=== PATIENT | female | born 1985 | race Caucasian/White ===

== ENCOUNTER 2021-09-11 07:14 | Outpatient (CLI) | payer BC, SELFPAY ==
[2021-09-11 07:42] VITALS: BP 117/69; PULSE 96
--- NOTE | 2021-09-11 09:09 | WPDOBADMIT ---
Obstetrics - Admit Note Admission Note: 35 y/o at 37 weeks here for ECV. MBT O pos. AVSS NST reactive TOCO: no contractions ABD soft, nontender, gravid, breech. Transabdominal ultrasound at bedside by me confirms linus breech presentation with back on maternal left. Adequate AFV. Procedure: Terbutaline 0.25 mg sc x 1 was given. Using ultrasound guidance, we attempted to elevate the breech out of the pelvis and effect a forward (counterclockwise) somersault. This was unsuccessful. We tried a reverse somersault, then tried both directions again. All attempts were unsuccessful. FHR normal throughout. The patient tolerated the procedure well. We continued an NST. She will be discharged home to f/u next week in office.
== END 2021-09-11 09:50 | disposition home or self-care (01) ==
LOC: ANHOBOP 07:24 → ANHOBPP 09-17 06:41
PROVIDERS: Visit Provider Obstetrics & Gynecology
DX: O32.1XX0 Maternal care for breech presentation, not applicable or unspecified (principal)
CPT/HCPCS: 59412; 99199

== ENCOUNTER 2021-09-24 13:41 | Outpatient (CLI) | payer BC, SELFPAY ==
[2021-09-24 14:48] LABS: Hematocrit 38.1 % (37.0-47.0); Hemoglobin 12.6 g/dL (12.0-15.0); Immature Platelet Fraction Pct 5.9 % (0.9-11.2); Mean Corpuscular HGB Conc 33.1 g/dl (32-36); Mean Corpuscular Hemoglobin 32.8 pg (26-34); Mean Corpuscular Volume 99.2 fl (80-100); Mean Platelet Volume 10.8 fl (7.4-10.4); Platelet Count Result 153 k/mm3 (150-375); Red Blood Count 3.84 M/mm3 (4.2-5.4); Red Cell Distribution Width 14.9 % (11.5-14.5); White Blood Count 8.7 K/mm3 (4.5-10.0)
[2021-09-25 10:42] LABS: Rapid Plasma Reagin Non-Reactive (NonReactive)
== END 2021-09-24 13:42 | disposition home or self-care (01) ==
PROVIDERS: Visit Provider Obstetrics & Gynecology
DX: Z01.818 Encounter for other preprocedural examination (principal)
CPT/HCPCS: 36415; 85027; 85055; 86592; 86850; 86900; 86901

== ENCOUNTER 2021-09-25 09:49 | Inpatient (IN) | payer BC, SELFPAY ==
[2021-09-25] VITALS (42 sets, daily range): BP systolic 90–115; BP diastolic 49–71; PULSE 59–95; RESP 11–16; TEMP 36.1–36.8; O2SAT 76–100; BMI 28.3
--- NOTE | 2021-09-25 09:49 | LDADM ---
This patient, Lauryn Hays, was admitted to Labor/Delivery/Recovery 119 on 09/25/21 at 09:49. Plans for labor, pain management and were discussed with patient. Patient/family oriented to hospital policies and general routines including ID bracelet, bed and alarms, visiting hours, pain management, procedures, bathroom and other care routines, personal items, smoking policy, room service/diet and guest tray routines, security routines, and visiting hours. Patient/Family are encouraged to report perceived risks to care and to ask questions if they do not understand what they are told or what they should do. See OBIX for further documentation.
[2021-09-25] MEDS: LACTATED RINGERS 1,000 ML 125 ML IV CONT ×2 (10:32→11:02)
--- NOTE | 2021-09-25 11:22 | P.PNAN_ITS ---
Anes - Initial Pre Proc Eval Date/Time: 09/25/21 11:22 Surgeon: Dawson Trotter MD Pre Op Diagnosis: c/s breech Patient Data Age: 35 Gender: F Height: 1.66 m Weight: 78.5 kg Last Vital Signs Pulse 87 09/25/21 10:30 BP 108/65 09/25/21 10:30 Allergies Allergy/AdvReac Type Severity Reaction Status Date / Time codeine Allergy Unknown Itching Verified 09/11/21 09:14 Patient hx anesthesia problems: none Family hx anesthesia problems: none Results Review: All pre-operative results and documents have been reviewed as part of the pre-operative evaluation. [facility] Family History Family History (Updated 09/11/21 @ 09:19 by Sam Salas RN) Grandparent Diabetes mellitus Cerebrovascular accident Father Diabetes mellitus History of heart artery stent Other Breast cancer Grandparent Stomach cancer Grandparent Brain aneurysm Mother Skin cancer (melanoma) H/O partial thyroidectomy Social History Social History Smoking status: Never smoker Second hand tobacco smoke exposure: No Alcohol intake: current Substance use: never Spiritual care concerns: No Anes - Eval Final PreProcedure Day of Procedure 09/25/21 11:22 Patient weight: overweight Heart: regular rate and rhythm Lungs: clear to auscultation and normal air movement Airway: Mallampati scale class II Neurological: alert and oriented Last oral intake: >/= 8 hours ASA classification: II Emergent: no Anesthetic plan: proceed Anesthesia type and monitoring: regional spinal Results Review: All pre-operative results and documents have been reviewed as part of the pre-operative evaluation. Informed Consent: The patient's anesthetic plan and its attendant risks and benefits were discussed with the patient/family/POA. Questions were solicited and answers provided to the satisfaction of the patient/family/POA.
--- NOTE | 2021-09-25 12:15 | P.HP_ITS ---
H&P: HPI History of Present Illness Date/Time: 09/25/21 12:15 35 y/o at 39 weeks with breech presentation, failed ECV, here for primary . GBS neg. Chief Complaint: Here for c section Review of Systems Review of Systems: All systems reviewed & are unremarkable except as noted in HPI and below PMFSH Surgical History Surgical History History of augmentation mammoplasty Family History Family History Grandparent Diabetes mellitus Cerebrovascular accident Father Diabetes mellitus History of heart artery stent Other Breast cancer Grandparent Stomach cancer Grandparent Brain aneurysm Mother Skin cancer (melanoma) H/O partial thyroidectomy Social History Social History Smoking status: Never smoker Second hand tobacco smoke exposure: No Alcohol intake: current Substance use: never Spiritual care concerns: No Meds Home Medications and Allergies Allergies Allergy/AdvReac Type Severity Reaction Status Date / Time codeine Allergy Unknown Itching Verified 09/11/21 09:14 Vital Signs Vital Signs - 24 hr 09/25/21 10:13 09/25/21 10:15 09/25/21 10:30 Pulse Rate 85 95 87 Blood Pressure 104/64 105/71 108/65 Exam Const: Orientation/consciousness: patient oriented x3 Other: Well-d eveloped, well-nourished female in no acute distress. Neck: Thyroid: thyroid normal Lymphatic: no lymphadenopathy noted (in neck, axilla or inguinal nodes) Resp: Effort & Inspection: normal respiratory effort Auscultation: clear to auscultation bilaterally Cardio: Rate: regular rate Rhythm: regular rhythm Heart sounds: S1 normal heart sound present and S2 normal heart sound present GI: Other: ABD: Soft, nontender, nondistended, gravid. NST reactive. TOCO: no contractions. Bedside ultrasound exam by me confirms persistent breech presentation. : General: Yes no CVA tenderness Other: Cervix closed Back/Spine/Pelvis: Back: no CVA tenderness Skin: General skin exam: normal color and no rashes or lesions noted Neuro: General: patient oriented x3 Extrem: Other: Extremities: nontender with no edema Psych: Mental Status: mental status grossly normal Affect: normal affect Assessment and Plan Assessment and plan (1) Breech presentation: Code(s): O32.1XX0 - Maternal care for breech presentation, not applicable or unspecified Status: Acute (2) Term : Code(s): Z34.90 - Encounter for supervision of normal , unspecified, unspecified trimester Status: Acute Assessment and Plan: A: IUP at 39 weeks with persistent breech presentation. P: Offered primary . She understands risks of surgery to include risks of anesthesia, risks of pain, infection, bleeding, blood products, thromboembolic phenomena and damage to adjacent structures such as bowel, bladder, ureters, blood vessels and nerves. She understands all these risks and elects to proceed with surgery.
--- NOTE | 2021-09-25 12:18 | WPDHPUPDATE1 ---
History and Physical Update Update Date/Time: 09/25/21 12:18 History and Physical has been reviewed, including an updated exam of the patient. There are NO changes in the patient's condition. Risks, benefits, and alternatives have been discussed and questions answered. Patient agrees to proceed with procedure.
--- NOTE | 2021-09-25 13:25 | PM.OBPRVD ---
OB - Delivery Note Procedure Delivery date: 09/25/21 Procedure: Primary low transverse delivery Delivery monitor: external FHT and external uterine Route of delivery: Specimen: Yes (cord blood) Quantitative Blood Loss (ml): 480 Anesthesia type: Spinal Disposition: PACU Complications: None Narrative: The patient was taken to the operating room where she was prepared and draped in the usual sterile fashion in dorsal supine position with a leftward tilt. She received cefazolin preoperatively. Spinal anesthesia was found to be adequate. A Pfannenstiel skin incision was made and carried through to the underlying layer of the fascia. The fascia was incised in the midline and the incision was extended laterally. The fascia was dissected free of the underlying rectus muscles. The rectus muscles were in the midline. The peritoneum was identified, tented up and entered sharply. The peritoneal incision was extended superiorly and inferiorly with good visualization of the bladder. The bladder blade was placed. The vesicouterine peritoneum was identified, tented up and entered sharply. The incision was extended laterally and the bladder flap was developed. The bladder blade was replaced. The uterus was then incised sharply in a transverse fashion along the lower uterine segment. The incision was extended laterally. The 's breech was delivered to the level of the scapulae. The arms were swept across the chest and delivered. The head was gently flexed and easily delivered. The nose and mouth were bulb suctioned. After a delay, the cord was clamped and cut. The was handed off the field. Cord blood was collected. The placenta was removed manually and was passed off the field. The uterus was exteriorized and cleared of all clots and debris. The uterine incision was reapproximated using 0 Monocryl in a running, locked fashion. A second, imbricating layer of the same suture was run. Excellent hemostasis resulted as did excellent reapproximation of the normal anatomy. The uterus was returned the abdomen. The pelvis was irrigated copiously with warmed normal saline. Rigorous hemostasis was assured. The fascial layer was reapproximated using 0 Vicryl in a running fashion. The skin was closed with a running, subcuticular stitch of 4 0 Vicryl. Dermaflex was applied externally. Sponge, lap, needle and instrument counts were correct. The patient was taken to the recovery room in stable condition. The went to the nursery in stable condition. I was present and scrubbed the entire procedure. [place] Baby Date of : 09/25/21 Time of : 12:43 Weeks of gestation at delivery: 39 Infant gender: Male Weight (pounds): 7 Weight (ounces): 7 presentation: breech Placenta delivery description: Manual Removal and Normal Configuration cord vessel description: 3 Vessels and Delayed Cord Clamping score one minute: 8 score five minutes: 9
--- NOTE | 2021-09-25 13:30 | PM.OBDSVD ---
DS: Admitting Diagnosis Discharge Date 09/28/21 Admitting Diagnosis IUP at 39 weeks Breech presentation DS: Discharge Diagnosis Discharge Diagnosis (1) delivery delivered: Code(s): O82 - Encounter for delivery without indication Status: Acute OB - DS: Summary OB Procedures : NST and Ultrasound OB Procedures Intrapartum: OB Procedures: : None Discharge Plan Discharge Attending physician on discharge: Dawson Trotter Discharging Clinician: Dawson Trotter Patient Disposition: Home, Self-Care Activity: may shower, may drive after 2 weeks and pelvic rest Diet: regular Wound Care Instructions: incision open to air Discharge Instructions: Education: Mom and Baby Guide Given to: Mother Follow-Up: Call your delivering provider's office for an appointment to be seen in: 4 Weeks Mom and baby should come to the [facility] for the follow-up appointment. Appointment Date/Time: September 29, 2021 at 11:00 am What to expect at your follow-up visit: Blood Pressure Check Call [phone] if you are unable to keep your appointment time. BREAST CARE: * Wear a snug supportive bra. * For engorgement discomfort: Breast Feeding: * Apply warm moist washcloths * Express milk as needed to relieve engorgement * Wear loose clothing Bottle Feeding: * May apply ice packs * For sore nipples: * Identify correct latch-on * Apply warm moist washcloths before and after nursing * Air dry nipples after nursing * May apply Lansinoh cream to nipples ABDOMINAL INCISION: (if applicable) * Allow incision to air dry * Do NOT use lotions for powders on your incision * When showering, allow soap and water to run over the incision, but do not wash incision PERINEAL CARE: * Until bleeding stops, use your mark bottle after urinating * Change your pad frequently throughout the day * No tub baths until seen by your physician - You may shower ACTIVITY: * Rest as much as possible. * Do not exercise or lift anything heavier than your baby (such as laundry or other children.) * Avoid stairs or driving as much as possible. * Do not put anything into the vagina. No douching, tampons, or sexual activity until seen by physician. NOTIFY PHYSICIAN IF YOU HAVE ANY QUESTIONS OR IF ANY OF THE FOLLOWING SYMPTOMS OCCUR: * If your incision becomes red, swollen, or more painful than what you have experienced in the hospital. * If your vaginal bleeding becomes foul smelling. * If your vaginal bleeding becomes more heavy than a period or if your bleeding changes from pink to bright red. However, you may pass an occasional walnut-sized clot once or twice for the first week . * If you experience a sharp, shooting pain in you calves. * If you discover a hard, reddened area on your breast or if you experience flu-like symptoms. * If you have a fever of 100.4 or greater DIET: * Eat regular, well-balanced meals. * Drink plenty of fluids daily. If , drink to thirst.Call or return if temperature above 100.4? F, increased abdominal pain, increased vaginal bleeding or any new problems. Stand Alone Forms: General Discharge Information Follow-up/Referrals: Dawson Trotter MD [Physician] - 4 Weeks Discharge Medications: New tramadol 50 mg tablet 50 - 100 mg PO Q6H PRN (Reason: pain) Qty: 30 RF: 0 ibuprofen 600 mg tablet 600 mg PO Q6H PRN (Reason: cramps) Qty: 30 RF: 0 Date of admission: 09/25/21 09:49 Primary Care Provider: PHYSICIAN,COFFEE FARMER Admitting Provider: Dawson Trotter Attending physician on admission: Dawson Trotter Condition: Stable
[2021-09-25] MEDS: OXYTOCIN 30 UNITS/NS 500 ML 30 UNITS/500 ML BAG 125 UNITS IV CONT (14:56)
[2021-09-25] MEDS: KETOROLAC 30 MG/ML VIAL (*BKC) IV PUSH ×2 (16:30→22:25)
[2021-09-25] MEDS: DEXTROSE 5%/0.45% SOD CHL 1,000 ML 125 ML IV CONT (19:15)
--- NOTE | 2021-09-25 20:03 | OBPPTRN ---
1541 Patient transferred to post room #286 via stretcher. Support person present. Oriented to unit, room, information board, rooming in, admission packet and security measures. Patient verbalizes understanding.
[2021-09-26 03:25] VITALS: BP 92/56; PULSE 74; RESP 16; TEMP 37; O2SAT 99
[2021-09-26 04:36] LABS: Basophils Percent Auto 0.3 % (0.2-1.2); Eosinophils Absolute Auto 0.1 K/mm3 (0-0.3); Eosinophils Percent Auto 0.6 % (0-4.4); Hematocrit 32.8 % (37.0-47.0); Immature Granulocyte Absolute 0.11 K/mm3 (0.00-0.031); Immature Granulocyte Percent A 1.2 % (0-0.5); Lymphocytes Absolute Auto 1.61 K/mm3 (0.9-3.2); Mean Corpuscular HGB Conc 33.5 g/dl (32-36); Mean Corpuscular Hemoglobin 32.9 pg (26-34); Mean Corpuscular Volume 98.2 fl (80-100); Mean Platelet Volume 10.8 fl (7.4-10.4); Monocytes Absolute Auto 0.5 K/mm3 (0.1-0.6); Monocytes Percent Auto 5.1 % (2.6-8.5); Neutrophils Absolute Auto 6.7 K/mm3 (1.3-6.7); Neutrophils Percent Auto 74.8 % (45.5-73.1); Platelet Count Result 104 k/mm3 (150-375); Red Blood Count 3.34 M/mm3 (4.2-5.4); Red Cell Distribution Width 14.8 % (11.5-14.5)
[2021-09-26] MEDS: KETOROLAC 30 MG/ML VIAL (*BKC) IV PUSH (05:23)
[2021-09-26 08:10] VITALS: BP 95/60; PULSE 80; RESP 16; TEMP 36.9; O2SAT 100
--- NOTE | 2021-09-26 09:04 | P.PNOB_ITS ---
OB - PN: Subj Subjective Date/time seen: 09/26/21 09:04 Narrative: Pain OK. Tolerating diet. Would like circ for son. OB - PN: Obj Data Labs CBC & Chem 7: 09/26/21 03:33 Labs: Laboratory Results - last 24 hr 09/26/21 03:33 WBC 9.0 RBC 3.34 L Hgb 11.0 L Hct 32.8 L MCV 98.2 MCH 32.9 MCHC 33.5 RDW 14.8 H Plt Count 104 L MPV 10.8 H Immature Gran % (Auto) 1.2 H Neut % (Auto) 74.8 H Lymph % (Auto) 18.0 L [place] % (Auto) 5.1 Eos % (Auto) 0.6 Baso % (Auto) 0.3 Lymph # (Auto) 1.61 [place] # (Auto) 0.5 Eos # (Auto) 0.1 Baso # (Auto) 0.0 Abs Immat Gran (auto) 0.11 H Absolute Neuts (auto) 6.7 Absolute Nucleated RBC 0.0 Nucleated RBC % 0.0 OB - PN A/P Plan Comments: A: POD#1, doing well. P: Routine care. Reviewed circ. Exam Narrative: AVSS I/O OK ABD soft, nontender, fundus firm. Incision c/d/i. EXT nontender
[2021-09-26] MEDS: ACETAMINOPHEN 325 MG TABLET 650 MG PO (09:32)
[2021-09-26] MEDS: MULTIVIT/MIN/PREN/FOL AC/IRON TABLET 1 TAB PO (09:35)
[2021-09-26] MEDS: DOCUSATE SODIUM 100 MG CAPSULE PO ×2 (09:35→16:19)
[2021-09-26] MEDS: WITCH HAZEL 40 PADS 1 PAD (10:03)
[2021-09-26] MEDS: DIBUCAINE 1% OINTMENT 30 GM TUBE 1 APPLIC (10:03)
[2021-09-26] MEDS: SIMETHICONE 80 MG TAB.CHEW PO ×3 (10:03→20:30)
--- NOTE | 2021-09-26 10:05 | WPDANLDPN2 ---
Anes-Prog Note L&D Date/Time: 09/26/21 10:05 Comfortable throughout: section Neuraxial method: spinal Epidural/Spinal procedure site: clean & non-tender Neuro status: Neuro function grossly intact. Cardiovascular status: normal Respiratory status: normal Airway patency: baseline Mental status: baseline Post-Op hydration status: normal Vital Signs: Last Vital Signs Temp 37.0 C 09/26/21 03:25 Pulse 74 09/26/21 03:25 Resp 16 09/26/21 03:25 BP 92/56 L 09/26/21 03:25 Pulse Ox 99 09/26/21 03:25 Pain score (VAS): 09/10 I/O: Intake & Output 09/25/21 09/26/21 09/26/21 23:59 07:59 15:59 Intake Total 500 1000 Output Total 750 1050 Balance -250 -50 Post-procedural complaints: none Patient feedback: Patient satisfied with anesthetic care.
--- NOTE | 2021-09-26 10:05 | WPDANLDNPN2 ---
Anes-Prog Note L&D-Neuraxial Date/Time: 09/26/21 10:05 Neuraxial medications: intrathecal PF morphine Opiod-related complaints: none Patient feedback: Patient satisfied with post-operative pain management.
--- NOTE | 2021-09-26 10:58 | PC.NURSE ---
0900 - Introductions were made and mother led the discussion of her experience of feeding her babies. Mother has breast augmentation and states she breastfed her other two children for 7 months with a good milk production and naturally weaned. Mother uses handwashing to prevent infection before and after taking care of her baby. Mother verbalizes she is able to independently latch infant. Discussed how to watch for early feeding cues, place infant skin to skin, then feeding baby when infant is ready or every 2-3 hours. She denies any nipple discomfort. Reviewed effective latching with resources mom and baby guide. Use of warm, wet compress to nipples and air dry for improved comfort. Mother is feeding as needed to meet requirements. Mother has verbalized understanding watching for feeding cues for responsive feeding or how to stimulate to initiate from the start of the last feeding. Mother voiced understanding to feed infant when she sees feeding cues, 8-12 times in 24 hours approximately every 2-3 hours from the start of the last feeding or she has discomfort with nursing. Reported to primary RN.
[2021-09-26 12:30] VITALS: BP 99/65; PULSE 88; RESP 16; TEMP 36.7; O2SAT 100
[2021-09-26] MEDS: IBUPROFEN 600 MG TABLET PO ×2 (12:37→19:00)
[2021-09-26] MEDS: HYDROcodone/acetaminophen (*CRX) 5-325 MG TABLET 1 TAB PO ×2 (16:18→20:30)
[2021-09-26 20:30] VITALS: BP 103/65; PULSE 85; RESP 16; TEMP 36.8; O2SAT 100
[2021-09-27] MEDS: IBUPROFEN 600 MG TABLET PO ×4 (01:03→21:17)
[2021-09-27] MEDS: ACETAMINOPHEN 325 MG TABLET 650 MG PO ×3 (04:25→21:18)
--- NOTE | 2021-09-27 07:00 | PC.NURSE ---
PT introductions made and plan of care discussed per post op c section, pain management, breast feeding, daily care activities. PT sole recipient of such instructions. PT received instructions this shift per one to one discussion, mom baby care guide and demonstrations. NO barriers to learning identified at this time. PT verbalized understanding of such care.
[2021-09-27 08:25] VITALS: BP 100/59; PULSE 82; RESP 18; TEMP 36.9; O2SAT 100
[2021-09-27] MEDS: LANOLIN (LANSINOH) 7.5 GM CREAM 1 APPLIC TOPICAL (08:39)
[2021-09-27] MEDS: SIMETHICONE 80 MG TAB.CHEW PO ×4 (08:39→17:41)
[2021-09-27 08:40] VITALS: PULSE 85; RESP 16; O2SAT 100
[2021-09-27] MEDS: MULTIVIT/MIN/PREN/FOL AC/IRON TABLET 1 TAB PO (08:40)
[2021-09-27] MEDS: DOCUSATE SODIUM 100 MG CAPSULE PO ×2 (08:40→17:40)
--- NOTE | 2021-09-27 09:08 | PM.OBPNVD ---
OB - PN: Subj Subjective Date/time seen: 09/27/21 09:08 Narrative: Pain OK. Tolerating diet. Would like Tramadol for pain. She has used it in the past and has done well. OB - PN: Obj Data Labs CBC & Chem 7: 09/26/21 03:33 OB - PN A/P Plan Comments: A: POD#2, doing well. P: Routine care. Exam Narrative: AVSS I/O OK ABD soft, nontender, fundus firm. Incision c/d/i. EXT nontender
[2021-09-27] MEDS: traMADol HCL (*CRX) 50 MG TABLET PO ×2 (11:22→18:55)
[2021-09-27] MEDS: TETANUS,DIPHTHERIA,AC PERTUSSIS ADULT (0.5 ML) BOOSTRIX IM (15:27)
[2021-09-27 19:15] VITALS: BP 117/69; PULSE 83; RESP 18; TEMP 36.6
[2021-09-28] MEDS: traMADol HCL (*CRX) 50 MG TABLET PO (01:04)
[2021-09-28] MEDS: IBUPROFEN 600 MG TABLET PO ×2 (05:37→11:54)
[2021-09-28] MEDS: ACETAMINOPHEN 325 MG TABLET 650 MG PO ×2 (05:37→11:55)
--- NOTE | 2021-09-28 07:00 | PC.NURSE ---
PT introductions made and plan of care discussed per post op c section, pain management, breast feeding, daily care activities and pending discharge to home. PT sole recipient of such instructions. PT received instructions this shift per one to one discussion, mom baby care guide and demonstrations. NO barriers to learning identified at this time. PT verbalized understanding of such care.
[2021-09-28 08:25] VITALS: BP 110/70; PULSE 76; RESP 18; TEMP 36.4; O2SAT 99
--- NOTE | 2021-09-28 08:40 | PM.OBPNVD ---
OB - PN: Subj Subjective Date/time seen: 09/28/21 08:40 Narrative: Pain OK. Tolerating diet. Would like to go home. OB - PN: Obj Data Labs CBC & Chem 7: 09/26/21 03:33 OB - PN A/P Plan Comments: A: POD#3, doing well. P: Home to f/u 4 weeks. Exam Narrative: AVSS ABD soft, nontender, fundus firm. Incision c/d/i. EXT nontender
[2021-09-28] MEDS: SIMETHICONE 80 MG TAB.CHEW PO ×2 (08:53→11:56)
[2021-09-28] MEDS: MULTIVIT/MIN/PREN/FOL AC/IRON TABLET 1 TAB PO (08:53)
[2021-09-28] MEDS: DOCUSATE SODIUM 100 MG CAPSULE PO (08:53)
[2021-09-28 09:00] VITALS: PULSE 76; RESP 18; O2SAT 99
--- NOTE | 2021-09-28 11:29 | PC.NURSE ---
0855 - Primary RN confirms today mother's milk is in. As discovered yesterday with assessment, mom continues to breastfeed independently without pain. Mother voiced understanding when to call for assistance.
--- NOTE | 2021-09-28 13:00 | PC.NURSE ---
Pt received discharge instructions per protocol and verbalized understanding of such care.
[2021-09-29 11:00] VITALS: BP 109/71; PULSE 82; RESP 20; TEMP 37.1; O2SAT 100
== END 2021-09-28 13:30 | disposition home or self-care (01) | DRG 788 ==
LOC: ANHLDR 13:32 → ANHOB2 15:53
PROVIDERS: Admitting Provider Obstetrics & Gynecology; Visit Provider Obstetrics & Gynecology
PROC: 10D00Z1 Extraction of Products of Conception, Low, Open Approach (ICD-10-PCS; CPT 59514; principal; 2021-09-25 12:00)
DX: O32.1XX0 Maternal care for breech presentation, not applicable or unspecified (principal); Z3A.39 39 weeks gestation of pregnancy; Z37.0 Single live birth
CPT/HCPCS: 36415; 85025; 90715; A9270; J0131; J1885; J2274; J2370; J2405; J2590; J7120

== ENCOUNTER 2024-03-24 00:07 | Day surgery (SDC) | payer BC, SELFPAY ==
[2024-03-22 12:43] VITALS: BMI 22.9
--- NOTE | 2024-03-22 12:50 | PC.NURSE ---
Report to the Outpatient Waiting Room, entrance under the green pavilion located off [facility], at time _1000_ on date _[id number]_. Planned Procedure Time: _1200_. Time changes happen often and if your time is changed the preop area will call you the afternoon before. - You and your visitor will be asked to self-screen and do not enter if you have any COVID symptoms. - A mask is optional within the hospital at this time. Patients may have clear liquids (water, carbonated beverages, clear teas, apple juice) until 3 hours prior to surgery with a maximum of 20 ounces. - No food from midnight until time of surgery Take the following medications with a SIP of water the morning of surgery: ____Flonase if needed. DO NOT STOP ANY OF YOUR OTHER PRESCRIPTION MEDICATIONS PRIOR TO SURGERY ?EXCEPT THE FOLLOWING Medications to discontinue per physician None Date to take last dose Please no make-up, nail danish, hairspray, perfume, deodorant, or body powder the day of surgery. No jewelry (including any body piercings) or valuables the day of surgery, leave them at home. Please take a shower or bath the night before, or the morning of, surgery with an antibacterial soap. Wear comfortable, loose fitting clothing. - Jewelry must be removed prior to entering the operating room. Rings and piercings that are not removed may be cut off. - The hospital will not accept responsibility for valuables. - Please leave all valuables, including medications, at home the day of surgery. If you are going home after surgery, a licensed route driver must drive you home. - NO public transportation without another adult if you receive anesthesia. - We recommend that an adult stay with you for 24 hours following discharge. - We also recommend that you do not drive, make important decision, drink alcoholic beverages, or take any drugs that were not prescribed by your health care provider for at least 24 hours after your discharge time. Follow any additional instructions given to you from your surgeon. If you or anyone in your household have experienced Covid symptoms in the past week, please notify your surgeon or the nurse liaison at the phone number below for possible testing. Telephone instructions given to __Lauryn___and asked if any additional questions and then verbalized understanding. Patient advised to call surgeon office or pre surgery nurse liaison [phone] if any additional questions.
[2024-03-24] MEDS: ACETAMINOPHEN 500 MG TABLET 1000 MG PO (10:35)
[2024-03-24 10:40] VITALS: BP 115/66; PULSE 78; RESP 16; TEMP 36.6; O2SAT 100
[2024-03-24] MEDS: LACTATED RINGERS 1,000 ML 30 ML IV CONT ×2 (10:40→12:32)
--- NOTE | 2024-03-24 11:36 | PM.IMHP ---
H&P: HPI History of Present Illness Date/Time: 03/24/24 11:36 Chief Complaint: Heavy periods Narrative: 38 y/o with heavy menses lasting 8-9 days each. She has no intermenstrual bleeding. Her has had a vasectomy. Review of Systems Review of Systems: All systems reviewed & are unremarkable except as noted in HPI and below PMFSH Surgical History Surgical History History of augmentation mammoplasty History of delivery Family History Family History Grandparent Diabetes mellitus Cerebrovascular accident Father Diabetes mellitus History of heart artery stent Other Breast cancer Grandparent Stomach cancer Grandparent Brain aneurysm Mother Skin cancer (melanoma) H/O partial thyroidectomy Social History Social History Smoking status: Never smoker Second hand tobacco smoke exposure: No Alcohol intake: current Substance use: never Living arrangements: with family Spiritual care concerns: No Meds Home Medications and Allergies Home Medications Medication Instructions Recorded Confirmed Type fluticasone propionate 50 1 spray intranasal DAILY PRN 03/22/24 03/24/24 History mcg/actuation nasal Allergy Symptoms spray,suspension (Flonase Allergy Relief) Allergies Allergy/AdvReac Type Severity Reaction Status Date / Time codeine Allergy Unknown Itching Verified 03/24/24 10:38 Vital Signs Vital Signs - 24 hr 03/24/24 10:40 Temperature 36.6 C Pulse Rate 78 Respiratory Rate 16 Blood Pressure 115/66 Pulse Oximetry 100 Oxygen Delivery Room Air Exam Const: Orientation/consciousness: patient oriented x3 Other: Well-developed, well-nourished female in no acute distress. Neck: Thyroid: thyroid normal Lymphatic: no lymphadenopathy noted (in neck, axilla or inguinal nodes) Resp: Effort & Inspection: normal respiratory effort Auscultation: clear to auscultation bilaterally Cardio: Rate: regular rate Rhythm: regular rhythm Heart sounds: S1 normal heart sound present and S2 normal heart sound present GI: Other: ABD: Soft, nontender, nondistended. No guarding or rebound tenderness. No hepatosplenomegaly. : General: Yes no CVA tenderness Other: External genitalia: normal female hair distribution, without lesion. Urethral meatus: no lesion, non prolapsed. Bladder: no mass, nontender Vagina: well-estrogenized, without lesion or discharge. No cystocele or rectocele. Cervix: no lesion or discharge. Uterus: small, anteverted, freely mobile, nontender Adnexa: no mass or tenderness. Anus/perineum: no lesions, nontender Back/Spine/Pelvis: Back: no CVA tenderness Skin: General skin exam: normal color and no rashes or lesions noted Neuro: General: patient oriented x3 Extrem: Other: Extremities: nontender with no edema Psych: Mental Status: mental status grossly normal Affect: normal affect Assessment and Plan Assessment and plan (1) Menometrorrhagia: Code(s): N92.1 - Excessive and frequent menstruation with irregular cycle Status: Acute Assessment and Plan: A: Menometrorrhagia. P: We have reviewed medical as well a surgical treatment options, and she prefers the latter. Specifically, I have offered her a hysteroscopy with dilation and sharp curettage, and endometrial ablation. She understands risks of surgery to include risks of anesthesia, risks of pain, infection, bleeding, blood products, thromboembolic phenomena and damage to adjacent structures such as bowel, bladder, ureters, blood vessels and nerves. She understands endometrial ablation is not adequate for contraception. She understands all these risks and elects to proceed with surgery.
--- NOTE | 2024-03-24 11:42 | WPDANESEPPF ---
Anes - Initial Pre Proc Eval Procedure: Operation Date: 03/24/24 12:00 Proposed Procedures p Hysteroscopy Dilation and Curettage with Citlali Endometrial Ablation - Dawson Trotter MD Date/Time: 03/24/24 11:42 Surgeon: Dawson Trotter MD Pre Op Diagnosis: dysmenorrhea, heavy bleeding Patient Data Age: 38 Gender: F Height: 1.66 m Weight: 63.85 kg Last Vital Signs Temp 36.6 C 03/24/24 10:40 Pulse 78 03/24/24 10:40 Resp 16 03/24/24 10:40 BP 115/66 03/24/24 10:40 Pulse Ox 100 03/24/24 10:40 O2 Del Method Room Air 03/24/24 10:40 Allergies Allergy/AdvReac Type Severity Reaction Status Date / Time codeine Allergy Unknown Itching Verified 03/24/24 10:38 Home Medications Medication Instructions Recorded Confirmed Type fluticasone propionate 50 1 spray intranasal DAILY PRN 03/22/24 03/24/24 History mcg/actuation nasal Allergy Symptoms spray,suspension (Flonase Allergy Relief) Patient hx anesthesia problems: none Family hx anesthesia problems: none Results Review: All pre-operative results and documents have been reviewed as part of the pre-operative evaluation. [facility] Surgical History Surgical History History of augmentation mammoplasty History of delivery Family History Family History Grandparent Diabetes mellitus Cerebrovascular accident Father Diabetes mellitus History of heart artery stent Other Breast cancer Grandparent Stomach cancer Grandparent Brain aneurysm Mother Skin cancer (melanoma) H/O partial thyroidectomy Social History Social History Smoking status: Never smoker Second hand tobacco smoke exposure: No Alcohol intake: current Substance use: never Living arrangements: with family Spiritual care concerns: No Anes - Eval Final PreProcedure Day of Procedure 03/24/24 11:42 Patient weight: normal Heart: regular rate and rhythm Lungs: clear to auscultation Airway: Mallampati scale class II Neurological: alert and oriented Last oral intake: >/= 8 hours ASA classification: I Emergent: no Anesthetic plan: proceed Anesthesia type and monitoring: general GIVS and standard monitoring Results Review: All pre-operative results and documents have been reviewed as part of the pre-operative evaluation. Informed Consent: The patient's anesthetic plan and its attendant risks and benefits were discussed with the patient/family/POA. Questions were solicited and answers provided to the satisfaction of the patient/family/POA.
--- NOTE | 2024-03-24 11:56 | WPDHPUPDATE1 ---
History and Physical Update Update Date/Time: 03/24/24 11:56 History and Physical has been reviewed, including an updated exam of the patient. There are NO changes in the patient's condition. Risks, benefits, and alternatives have been discussed and questions answered. Patient agrees to proceed with procedure.
[2024-03-24] MEDS: KETOROLAC 15 MG/ML VIAL (*BKC) IV PUSH (12:05)
[2024-03-24] MEDS: LIDOCAINE HCL 1% LOCAL INJ 20 ML VIAL 10 ML INFILTRATE (12:18)
[2024-03-24 12:32] VITALS: BP 101/62; PULSE 71; RESP 12; O2SAT 96
--- NOTE | 2024-03-24 12:35 | W.PM.PROC2 ---
Procedure Note - Detailed Date of Procedure 03/24/24 Pre-op Diagnosis Menometrorrhagia Post-op Diagnosis Same Procedure Performed Hysteroscopy Dilation and sharp curettage Endometrial ablation Surgeon Dawson Trotter MD Anesthesia MAC and Local (1% lidocaine) Findings Normal-appearing endometrial cavity. Both tubal ostia seen. The uterus sounded to a depth of 8 cm with a cervical length of 3 cm, giving a subtracted uterine cavity depth of 5 cm. Description of Procedure The patient was taken to the operating room where she was prepared and draped in the usual sterile fashion in the dorsal lithotomy position. The bladder was drained with a red rubber catheter. A sterile speculum was placed into the vagina. The anterior lip of the cervix was grasped with single-tooth tenaculum. Ten mL of 1% lidocaine was administered in a paracervical block. The cervix was then gently dilated using Hegar dilators until a 7 mm dilator could be passed. Hysteroscopy was performed using sterile saline as a distention medium. Findings are as noted above. Sharp curettage was then performed, and endometrial curettings were collected on a Telfa pad and passed off to be sent to pathology. Finally, the the Citlali device was advanced and endometrial ablation commenced without difficulty. The device was withdrawn and a second look was taken using the hysteroscope. Excellent coverage of the endometrial cavity was noted. The tenaculum was removed. Hemostasis was excellent. Sponge, lap, needle and instrument counts were correct. The patient was awakened and taken to the recovery room in stable condition. I was present and scrubbed through the entire procedure. Implants None Estimated Blood Loss 5 Drains No Packing No Pathology Yes (Endometrial curettings) Complications None Condition Stable Disposition PACU
[2024-03-24 13:00] VITALS: BP 96/62; PULSE 61; RESP 20
[2024-03-24 13:20] VITALS: BP 98/67; PULSE 58; RESP 20
[2024-03-24 16:03] LABS: BEDSIDEPREGUCG Negative
== END 2024-03-24 13:29 | disposition home or self-care (01) ==
PROVIDERS: Visit Provider Obstetrics & Gynecology
PROC: 0U5B8ZZ Destruction of Endometrium, Via Natural or Artificial Opening Endoscopic (ICD-10-PCS; CPT 58563; principal; 2024-03-24 12:00)
DX: N92.1 Excessive and frequent menstruation with irregular cycle (principal); Z98.890 Other specified postprocedural states; Z80.3 Family history of malignant neoplasm of breast; Z80.0 Family history of malignant neoplasm of digestive organs; Z84.0 Family history of diseases of the skin and subcutaneous tissue; Z82.49 Family history of ischemic heart disease and other diseases of the circulatory system
CPT/HCPCS: 58563; 88305; A9270; J1100; J1885; J2250; J2405; J2704; J3010; J7120

== ENCOUNTER 2025-07-11 10:40 | Outpatient (CLI) | payer OTHER, SELFPAY ==
--- OUTSIDE RECORDS SUMMARY | 2025-07-11 11:25 | XMS_ITS | Clinical Summary ---
Author Organization [facility] [email or web address] Address [address] [place] [address] Care Team Providers Care Knitting Supervisor Name Role Phone Sajan Mcclure Primary Care Provider [phone] Source Comments [facility] [email or web address],non-owned Affiliates and Associated Physician Practices is amultiple site organization consisting of ambulatory clinics and hospital sitesin [place], [place], [place] and [place]. This disclosure is being madepursuant to the Care Everywhere program and may not contain all information available regarding this patient. Last updated 18.[facility] [email or web address] Allergies Active Allergy Reactions Criticality Noted Date Comments Codeine Itching 09/16/2018 Medications * Be aware that medications may not be up to date on this document. Alwaysverify current medications with the patient. Montelukast Sodium (SINGULAIR PO) Activ e spironolactone (ALDACTONE) 25 MG tablet Take 25 mg by mouth once daily Active fexofenadine (CHARBEL) 180 MG tablet Take 1 tablet by mouth once daily 30 tablet 6 9 Active fluticasone propionate (FLONASE) 50 MCG/ACT nasal spray Leivasy 1 spray into each nostril 2 times daily 1 bottles 6 9 Active predniSONE (DELTASONE) 10 MG tablet Take 3 tablets by mouth once daily 21 tablet 9 Active olopatadine (PATANASE) 0.6 % nasal solution Leivasy 2 sprays into each nostril 2 times daily 1 bottles 6 9 Active fluticasone-nelsy meterol hfa (ADVAIR HFA) 115-21 MCG/ACT Inhale 2 puffs by mouth 2 times daily 1 Inhaler 5 0 Active albuterol HFA (PROVENTIL;VENT DEANNE;PROAIR) 108 (90 Base) MCG/ACT inhaler Inhale 2 (two) puffs by mouth every 6 hours as needed for Shortness of Breath, Wheezing or Cough 1 Inhaler 6 1 Active EPINEPHrine (EPIPEN) 0.3 MG/0.3ML auto-injector pen Inject 0.3 mL into muscle once as needed for Anaphylaxis 4 Each 1 Active Active Problems Problem Noted Date Diagnosed Date Allergic rhinitis 12/18/2018 Allergic conjunctivitis of both eyes 12/18/2018 Mild persistent asthma without complication 09/02 Resolved Problems Problem Noted Date Diagnosed Date Resolved Date Cough 12/18/2018 01/15/2019 Allergic rhinitis due to pollen 09/27/2018 05/27/2019 Social History Tobacco Use Types Packs/Day Years Used Date Smoking Tobacco: Never Smokeless Tobacco: Never Alcohol Use Standard Drinks/Week Comments Yes 0.8 (1 standard drink = 0.6 oz p ure alcohol) Comments No Sex and Gender Information Value Date Recorded Sex Assigned at Not on file 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 Gender Identity Not on file Sexual Orientation Not on file Last Filed Vital Signs Vital Sign Reading Time Taken Comments Blood Pressure 102/64 12/18/2018 9:51 AM CDT Pulse 98 12/18/2018 9:51 AM CDT Temperature 37.1 C (98.7 F) 01/14/2020 9:30 AM CDT Respiratory Rate 20 12/18/2018 9:51 AM CDT Oxygen Saturation 98% 09/16/2018 2:35 PM MEDICAL DOCTOR Inhaled Oxygen Concentration - - Weight 62.6 kg (138 lb) 12/18/2018 9:51 AM CDT Height 165.1 cm (5' 5) 12/18/2018 9:51 AM CDT Body Mass Index 22.96 12/18/2018 9:51 AM CDT Plan of Treatment Health Maintenance Due Date Last Done Comments HIV SCREENING 2000 HEPATITIS C SCREENING 10/07/2003 DTAP/TDAP/TD VACCINES (1 - Tdap) 2004 HEPATITIS B VACCINE (1 of 3 - 19+ 3-dose series) 2004 PNEUMOCOCCAL VACCINE (1 of 2 - PCV) 2004 PAP SMEAR 2006 HPV VACCINE (1 - 3-dose SCDM series) 2012 DEPRESSION SCREENING 09/01/2024 COVID-19 VACCINE (1 - season) 2025 INFLUENZA VACCINE (#1) 2025 9, 06/28/2018, 07/06/2016, Additional history exists ZOSTER VACCINE (1 of 2) 2035 HIB VACCINE Aged Out No longer eligi ble based on patient's age to complete this topic MENINGOCOCCAL (Group B) VACCINE SHARED DECISION-MAKING Aged Out No longer eligible based on patient's age to complete this topic MENINGOCOCCAL GROUPS A/C/Y/W VACCINE Aged Out No longer eligible based on patient's age to complete this topic Insurance [facility] Address: [facility] [address] [place] [address] * Guarantor: JUSTEN HAYS Account Type Relation to Patient Date of Phone Billing Address Personal/Family [address] [place] [phone] SELF PAY NO INSURANCE Member Subscriber Plan / Payer (Ef fective for All Dates) Name:Jsuten Hays Member ID:Not on file Relation to Subscriber:Not on file Name:JUSTEN HAYS Subscriber ID:Not on file Address: [address] [place] [phone] Payer ID:Not on file Group ID:Not on file Type:Self Pay Address: [place], [place] * Guarantor: JUSTEN HAYS Account Type Relation to Patient Date of Phone Billing Address Personal/Family [address] [place] [phone] SELF PAY NO INSURANCE Member Subscriber Plan / Payer (Ef fective for All Dates) Name:Justen Hays Member ID:Not on file Relation to Subscriber:Not on file Name:JUSTEN HAYS Subscriber ID:Not on file Address: [address] [facility] [address] Payer ID:Not on file Group ID:Not on file Type:Self Pay Address: [place], [place] * Guarantor: JUSTEN HAYS Relation to Patient Date of Phone Billing Address Personal/Family [address] [place] [phone] SELF PAY NO INSURANCE Member Subscriber Plan / Payer (Ef fective for All Dates) Name:LisJusten Member ID:Not on file Relation to Subscriber:Not on file Name:YOHANA HAYSLI Subscriber ID:Not on file Address: [address] [place] [phone] Payer ID:Not on file Group ID:Not on file Type:Self Pay Address: [place], [place] Care Teams Knitting Supervisor Relationship Specialty Start Date End Date Sajan Mcclure DO PCP - General 09/29/19
--- OUTSIDE RECORDS SUMMARY | 2025-07-11 11:25 | XMS_ITS | Encounter Summary ---
Author Organization [facility] Address [address] [place], [place] [id number] Care Team Providers Care Manager Java Name Role Phone Unavailable Primary Care Provider Unavailabl e Encounter Details Date Type Department Care Team (Late st Contact Info) Description 04/08/[address] 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
--- OUTSIDE RECORDS SUMMARY | 2025-07-11 11:25 | XMS_ITS | Clinical Summary ---
Author Organization [facility] Address [address] [place] [address] Care Team Providers Care Junior Estimator Name Role Phone KeyonGala reyes Karishma ASSOCIATE PROFESSOR OF GEOGRAPHY Primary Care Provider Allergies Active Allergy Reactions Criticality Noted Date Comments Codeine Itching Low 08/10/2014 Medications FLUoxetine (PROzac) 10 mg tablet/capsuleIn dications:Premen strual Dysphoric Disorder Take 1 tablet/capsule (10 mg total) by mouth daily Take for 1 week leading up to menstrual cycle 90 capsule 3 5 01/29/20 26 Active fluticasone furoate (ARNUITY) 100 mcg/actuation inhalerIndicatio ns:Intermittent asthma without complication, unspecified asthma severity Inhale 1 puff daily Rinse mouth with water after use. Do not swallow. 30 each 3 5 Active albuterol HFA (ProAir HFA) 90 mcg/actuation inhalerIndicatio ns:Intermittent asthma without complication, unspecified asthma severity Inhale 2 puffs every 4 (four) hours as needed for wheezing or shortness of breath 3 each 4 5 01/29/20 26 Active Active Problems Problem Noted Date Diagnosed Date Premenstrual dysphoric syndrome 01/28/2025 Allergic rhinitis 01/03/2025 Overview (01/28/2025): Was seeing cooling room attendant Got allergy shots, which was helpful at the time Generalized anxiety disorder 01/03/2025 Chronic sinusitis 10/06/2020 Assessment & Plan (10/06/2020 9:43 AM ENVELOPE SEALING MACHINE OPERATOR): -symptoms well controlled with weekly allergy shots, continue Vitamin D deficiency 10/06/2020 Assessment & Plan (10/06/2020 9:43 AM ENVELOPE SEALING MACHINE OPERATOR): -energy level is good, continue vitamin d 5000 international units daily Lipoma of left lower extremity 10/06/2020 Overview (01/28/2025): Saw job service consultant, unchanged in two years Assessment & Plan (10/06/2020 9:44 AM ENVELOPE SEALING MACHINE OPERATOR): -suspected lipoma to left thigh, advised continued monitoring at this time - she will notify me if becomes uncomfortable or is enlarging Asthma Overview (01/28/2025): as a child, occasional symptoms Resolved Problems Problem Noted Date Diagnosed Date Resolved Date Ganglion cyst of finger 10/06/2020 05/3 Assessment & Plan (10/06/2020 9:43 AM ENVELOPE SEALING MACHINE OPERATOR): -referral to ortho hand for further evaluation and possible removal of cyst Encounters Date Type Department Care Team Description 06/19/2025 3:59 AM CDT - 06/19/2025 6:02 AM CDT Emergency [facility] Emergency Department [address] [place] [address] Meredith Osman MD test negative (Primary Dx) Discharge Disposition: Discharge to home or self care from Last 3 Months Immunizations Immunization Administration Dates Next Due Anthrax 11/04/2016,08/19/2016 DTP 11/06/1990, 7,05/27/1986,02/25,1985 Hep A, Adult 08/01/2001,08/01/2000 Hep B Vaccine 08/01/2001,08/01/2000,08/01/1999 Hep B, Adolescent or Pediatric 10/16/2001,2000,02/06/2001 IPV 10/24/2014 Influenza, Quadrivalent, Spl it, Intramuscular 07/08/2020 Influenza, Quadrivalent, Spl it, Preservative Free, Intramuscular 05/18/2023,07/31/2019,06/28/2018 Influenza, Trivalent, IM (MDV) 07/06/2021 Influenza, Trivalent, Preser vative Free, Intramuscular 06/19/2022,07/06/2016,08/06/2015,05/29,07/04/2013 Influenza, Unspecified 07/03/2020 MMR 11/06/1990,01/27/1987 OPV 11/06/1990, 7,02/25/1986,12/14 Td, adsorbed 06/19/2022,01/15/2000 Tdap 09/27/2021,01/18/2019,12/31/2007 Typhoid Inactivated 08/19/2016 Varicella 08/19/2016,07/06/2016 Surgical History Surgery Date Site/Laterality Comments WISDOM TOOTH EXTRACTION 09/01/2004 - 08/31/2005 HAND SURGERY 09/01/2018 - 08/31/2019 BREAST SURGERY 09/01/2008 - 08/31/2009 augmentation ABLATION uterine COSMETIC SURGERY Breast apr 2009 TUBAL LIGATION Uterine ablation 2023 SECTION 2021 Medical History Medical History Date Comments Vitamin D deficiency Allergic Sinusitis Asthma as a child Ganglion cyst of finger 10/06/2020 Menstrual problem 2015 Family History Medical History Relation Name Comments Diabetes Father Heart disease Father Hyperlipidemia Father Hypertension Father Cancer Mother Reba Hyperlipidemia Mother Reba Alzheimer's disease Paternal Grandmother Bryanna Diabetes Paternal Grandmother Bryanna Parkinsonism Paternal Grandmother Bryanna Stroke Paternal Grandmother Bryanna Relation Name Status Comments Father Mother Reba Paternal Grandmother Bryanna Social History Tobacco Use Types Packs/Day Years Used Date Smoking Tobacco: Never Smokeless Tobacco: Never Humiliation, Afraid, Rape, and Kick questionnair e Answer Date Recorded Within the last year, have y ou been afraid of your partner or ex-partner? No 01/28/2025 Within the last year, have y ou been humiliated or emotionally abused in other ways by your partner or ex-partner? No Within the last year, have y ou been kicked, hit, slapped, or otherwise physically hurt by your partner or ex-partner? No 01/28/2025 Within the last year, have y ou been raped or forced to have any kind of sexual activity by your partner or ex-partner? No 01/28/2025 AUDIT-C Answer Date Recorded Q1: How often do you have a drink containing alc ohol? 2-4 times a month 01/28/2025 Q2: How many drinks containi ng alcohol do you have on a typical day when you are drinking? 1 or 2 01/28/2025 Q3: How often do you have si x or more drinks on one occasion? Never 01/28/2025 PHQ-2 Answer Date Recorded PHQ-2 Total Score (If total score is 3 or more points, staff should administer the PHQ-9) 0 01/28/2025 PHQ-9 Answer Date Recorded PHQ-9 Total Score 0 01/28/2025 Personal Safety Answer Date Recorded Have you ever been in or are you currently in a harmful physical or emotional relationship or is someone making you feel afraid or unsafe? Denies 06/19/2025 Comments No Sex and Gender Information Value Date Recorded Sex Assigned at Not on file Legal Sex Female 8:53 AM ENVELOPE SEALING MACHINE OPERATOR Gender Identity Female 10/05/2020 5:00 PM ENVELOPE SEALING MACHINE OPERATOR Sexual Orientation Straight 10/05/2020 5: 00 PM ENVELOPE SEALING MACHINE OPERATOR Occupation Industry Job Start Date Job End Date employed Not on file Not on file Not on file Last Filed Vital Signs Vital Sign Reading Time Taken Comments Blood Pressure 115/74 06/19/2025 5:45 AM CDT Pulse 65 06/19/2025 5:45 AM CDT Temperature 36.3 C (97.4 F) 06/19/2025 3:56 AM CDT Respiratory Rate 17 06/19/2025 5:45 AM CDT Oxygen Saturation 96% 06/19/2025 5:45 AM CDT Inhaled Oxygen Concentration - - Weight 64.4 kg (142 lb) 06/19/2025 4:09 AM CDT Height 165.1 cm (5' 5) 01/28/2025 3:16 PM CDT Body Mass Index 23.63 01/28/2025 3:16 PM CDT Plan of Treatment Health Maintenance Due Date Last Done Comments Hepatitis C Screening 1985 HPV Vaccines (1 - 3-dose SCDM series) 2012 Cervical Cancer Screening 01/30/2025 01/31/2024 Covid-19 Vaccine ( season) 2025 01/23/2023, 08/21/2021, 10/07/2020, Additional history exists Influenza Vaccine (#1) 2025 , 06/19/2022, 07/06/2021, Additional history exists Pneumococcal vaccine <65 (1 of 2 - PCV) 01/13/2026 Postponed from 2004 (Patient declined, but will receive in the future) Depression Screening 01/28/2026 01/28/2025, 10/06/19 21 Regular Well Visit/Exam 18-64 01/28/2026 01/28/2025 DTaP/Tdap/Td Vaccine (10 - Td or Tdap) 06/19/2032 06/19/2022, 09/27/2021, 01/18/2019, Additional history exists Hepatitis B Screening Completed 10/16/2001 , 08/01/2001, 03/12/2001, Additional history exists Varicella Vaccines Completed 08/19/2016, 07/06/2016 Procedures Procedure Name Priority Date/Time Associated Diagnosis Comments EGFR STAT 06/19/2025 5:05 AM CDT DIFFERENTIAL AUTO STAT 06/19/2025 5:0 5 AM CDT HCG, BLOOD, QUANTITATIVE STAT 06/19/2025 5:05 AM CDT BASIC METABOLIC PANEL STAT 06/19/2025 5:05 AM CDT CBC WITH AUTO DIFFERENTIAL STAT 06/19/2025 5:05 AM CDT from Last 3 Months Results * eGFR (06/19/2025 5:05 AM CDT) eGFR >90 >=60 mL/min/1. 73 m2 Comment: Interpretive Data Reference Interval Normal >/= 90 mL/min/1.73m2 Mildly decreased* 60 - 89 mL/min/1.73m2 Mildly to moderately decreased 45 - 59 mL/min/1.73m2 Moderately to severely decreased 30 - 44 mL/min/1.73m2 Severely decreased 15 - 29 mL/min/1.73m2 Kidney Failure < 15 mL/min/1.73m2 *Relative to young adult level Estimated glomerular filtration rate is determined by the 2020 CKD-EPI equation recommended by the National Kidney Foundation (A Unifying Approach to GFR Estimation: Recommendations of the NKF-ASK Task Force on Reassessing the Inclusion of Race in Diagnosing Kidney Disease, JASN 202). The CKD-EPI equation should not be used for patients with unstable renal function and has not been validated in children and those over 70. Current interpretive data was last reviewed 2021. Blood 06/19/2025 5:05 AM CDT 06/19/2025 5:10 AM CDT us Meredith Osman MD LAB BLOOD ORDERABLES Final Result [facility] [address] Department [place] [address] * Differential, auto (06/19/2025 5:05 AM CDT) Neutrophil abs 4.81 1.50 - 6.50 K/cumm Imm gran abs 0.03 0.00 - 0.10 K/cumm [facility] Lymphocyte abs 1.65 0.80 - 3.30 K/cumm [facility] Monocyte abs 0.37 0.20 - 0.80 K/cumm [facility] Eosinophil abs 0.06 0.00 - 0.50 K/cumm [facility] Basophil abs 0.04 0.00 - 0.10 K/cumm [facility] Neutrophil pct 69.1 % [facility] Comment: Interpretive Data Percent cell count reference ranges are not reported, since discordance with absolute values may lead to misinterpretation of CBC data. Current Interpretive Data was last revised on 2017. Imm gran pct 0.4 % [facility] Comment: Interpretive Data Percent cell count reference ranges are not reported, since discordance with absolute values may lead to misinterpretation of CBC data. Current Interpretive Data was last revised on 2017. Lymphocyte pct 23.7 % [facility] Comment: Interpretive Data Percent cell count reference ranges are not reported, since discordance with absolute values may lead to misinterpretation of CBC data. Current Interpretive Data was last revised on 2017. Monocyte pct 5.3 % [facility] Comment: Interpretive Data Percent cell count reference ranges are not reported, since discordance with absolute values may lead to misinterpretation of CBC data. Current Interpretive Data was last revised on 2017. Eosinophil pct 0.9 % [facility] Comment: Interpretive Data Percent cell count reference ranges are not reported, since discordance with absolute values may lead to misinterpretation of CBC data. Current Interpretive Data was last revised on 2017. Basophil pct 0.6 % [facility] Comment: Interpretive Data Percent cell count reference ranges are not reported, since discordance with absolute values may lead to misinterpretation of CBC data. Current Interpretive Data was last revised on 2017. Blood 06/19/2025 5:05 AM CDT 06/19/2025 5:10 AM CDT us Meredith Osman MD LAB BLOOD ORDERABLES Final Result [facility] [address] Department [place] [address] * CBC with auto differential (06/19/2025 5:05 AM CDT) WBC 6.96 3.80 - 9.90 K/cumm Hgb 13.8 11.9 - 15.5 g/dL [facility] Hct 41.7 35.6 - 45.5 % [facility] Plt 204 150 - 400 K/cumm [facility] MPV 9.8 9.1 - 12.3 fL [facility] RBC 4.53 3.90 - 5.20 M/cumm [facility] MCV 92.1 81.3 - 96.4 fL [facility] MCH 30.5 27.1 - 33.3 pg [facility] MCHC 33.1 32.3 - 35.7 g/dL [facility] RDW CV 12.3 11.1 - 14.9 % [facility] RDW SD 41.7 35.7 - 48.1 fL [facility] NRBC abs 0.00 0.00 - 0.01 K/cumm [facility] Blood 06/19/2025 5:05 AM CDT 06/19/2025 5:10 AM CDT Meredith Osman MD LAB BLOOD ORDERABLES Final Result Performing Organization Address City/[facility]/ZIP Co de Phone Number [facility] [address] [place] [address] * hCG, blood, quantitative (06/19/2025 5:05 AM CDT) Pathologist [facility] hCG, quant <0.6 0.0 - 5.0 IUnits/L Comment: Interpretive Data Male: < 5 IU/L Non- premenopausal Female: <5 IU/L The Santiago hCG Beta Quant assay procedure was used. Results from different manufacturers or methods may not be comparable. Serial testing should be performed using the same method. Interpretive Data was last revised on 2023 Blood Venous blood specimen / Unknown 06/19/2025 5:05 AM CDT 06/19/2025 5:10 AM CDT Meredith Osman MD LAB BLOOD ORDERABLES Final Result Performing Organization Address City/[facility]/ZIP Co de Phone Number [facility] [address] [place], [place] [id number] * (ABNORMAL) Basic metabolic panel (06/19/2025 5:05 AM CDT) Pathologist [facility] Sodium 138 135 - 145 mmol/L Potassium, pl 3.7 3.3 - 4.9 mmol/L [facility] Chloride 104 97 - 110 mmol/L [facility] CO2 21(L) 22 - 32 mmol/L [facility] Anion gap 13 2 - 15 mmol/L [facility] BUN 10 6 - 25 mg/dL [facility] Creatinine 0.72 0.60 - 1.10 mg/dL [facility] Glucose 85 70 - 199 mg/dL [facility] Comment: Interpretive Data Fasting glucose >/= 126 mg/dl is diagnostic for diabetes. Fasting is defined as no caloric intake for at least 8 hours. Fasting glucose between 100 mg/dl to 125 mg/dl is diagnostic of prediabetes. In a patient with classic symptoms of hyperglycemia or hyperglycemic crisis, a random glucose >/= 200 mg/dl is diagnostic for diabetes. In the absence of unequivocal hyperglycemia, results should be confirmed by repeat testing. The classification and Diagnosis of Diabetes Diabetes Care 202; 46: S19-S40. Current interpretive data was last revised 2022. Calcium 8.6 8.5 - 10.3 mg/dL [facility] Blood 06/19/2025 5:05 AM CDT 06/19/2025 5:10 AM CDT Meredith Osman MD LAB BLOOD ORDERABLES Final Result [facility] [address] [place] [address] from Last 3 Months Insurance [facility] HMO [facility] Address: [address] Care Teams Junior Estimator Relationship Specialty Start Date End Date Gala Montero NP [address] [facility], [address] [address] PCP - General Nurse Practitioner 01/28/25
--- OUTSIDE RECORDS SUMMARY | 2025-07-11 11:25 | XMS_ITS | Clinical Summary ---
Author Organization [facility] Address [address] [place] [address] Care Team Providers Care Principal Consultant Name Role Phone Unavailable Primary Care Provider Unavailabl e Social History Tobacco Use Types Packs/Day Years Used Date Smoking Tobacco: Never Assessed Comments Unknown Sex and Gender Information Value Date Recorded Sex Assigned at Not on file Legal Sex Female 9:11 PM [employer] Gender Identity Not on file Sexual Orientation Not on file Plan of Treatment Health Maintenance Due Date Last Done Comments Cervical Cancer Screening Pa p Smear (Age 30 to 64) Every 3 Years 1985 Annual Physical 1988 Hepatitis C 2003 DTaP, Tdap and Td Vaccines ( 1 - Tdap) 2004 Hepatitis B Vaccines (1 of 3 - 19+ 3-dose series) 2004 HPV Vaccines (1 - 3-dose SCD M series) 2012 Cervical Cancer Screening Pa p with HPV Testing (Age 30 to 64) Every 5 Years 2015 Cervical Cancer Screening with HPV 2015 COVID-19 Vaccine (2024-2 6 season) 2025 Influenza Adult (#1) 2025 Hepatitis A Vaccines Aged Out No long er eligible based on patient's age to complete this topic Meningococcal B Vaccine Aged Out No l onger eligible based on patient's age to complete this topic Meningococcal Vaccine Aged Out No faye yovany eligible based on patient's age to complete this topic Pneumococcal Vaccine: Pediat rics (0 to 5 Years) and At-Risk Patients (6 to 49 Years) Aged Out No longer eligible b ased on patient's age to complete this topic RSV Immunizations Under 20 Months Aged Out No longer eligible based on patient's age to complete this topic
[2025-07-11 11:47] LABS: Beta HCG Quantitative < 2.39 mIU/ML
== END 2025-07-11 10:41 | disposition home or self-care (01) ==
PROVIDERS: Visit Provider Obstetrics & Gynecology
DX: N92.6 Irregular menstruation, unspecified (principal)
CPT/HCPCS: 36415; 84702

== ENCOUNTER 2025-07-19 11:38 | Outpatient (CLI) | payer OTHER, SELFPAY ==
[2025-07-19 12:56] LABS: Beta HCG Quantitative < 2.39 mIU/ML
[2025-07-19 13:19] LABS: Thyroid Stimulating Hormone Reflex 1.970 uIU/mL (0.465-4.68)
== END 2025-07-19 11:39 | disposition home or self-care (01) ==
LOC: ANHLAB 11:39
PROVIDERS: Visit Provider Obstetrics & Gynecology
DX: N92.6 Irregular menstruation, unspecified (principal); E89.0 Postprocedural hypothyroidism; N64.3 Galactorrhea not associated with childbirth
CPT/HCPCS: 36415; 84144; 84146; 84443; 84702